=== PATIENT | female | born 1975 | race Caucasian/White ===

== ENCOUNTER 2020-11-02 11:14 | Emergency (ER) | payer OTHER ==
[~2020-11-02 11:14] MED LIST: ASPIRIN CHEWABL81 MG PO; NITROSTAT0.4 MG SL
== END 2020-11-02 13:43 | disposition left against medical advice (07) ==
LOC: ER1 11:14
DX: R07.89 Other chest pain (principal); Z53.21 Procedure and treatment not carried out due to patient leaving prior to being seen by health care provider

== ENCOUNTER → 2021-12-26 | Outpatient (CLI) | payer OTHER ==
[2021-12-26 07:58] LABS: HEMOGLOBIN 13.9 gm/dl (12.3-15.3); RED BLOOD COUNT 4.55 M/UL (4.00-5.10); WHITE BLOOD COUNT 4.8 K/UL (4.5-11.0)
[2021-12-26 08:21] LABS: BUN/CREATININE RATIO 15 (0-10)
== END ==
LOC: LAB 07:39
PROVIDERS: Physician Assistant
DX: E78.00 Pure hypercholesterolemia, unspecified (principal); Z13.1 Encounter for screening for diabetes mellitus; E55.9 Vitamin D deficiency, unspecified; R53.83 Other fatigue; M54.2 Cervicalgia; M47.812 Spondylosis without myelopathy or radiculopathy, cervical region
CPT/HCPCS: 72040; 80053; 80061; 82607; 84439; 84443; 85025